=== PATIENT | female | born 1965 | race Hispanic/Latino ===

== ENCOUNTER 2025-03-09 13:43 | Emergency (ER) | payer SELFPAY ==
--- NOTE | 2025-03-09 15:42 | RAD REPORT ---
EXAM: Chest Single View HISTORY: 59 years Female COUGH COMPARISON: None. FINDINGS: LUNGS/PLEURA: The lungs are clear. No pleural effusions or pneumothorax. No pulmonary edema. CARDIAC/MEDIASTINUM: The cardiac silhouette is within normal limits. UPPER ABDOMEN: No significant abnormality. BONES: No acute abnormality. LINES/TUBES/OTHER: N/A IMPRESSION: No evidence of acute cardiopulmonary disease.
[2025-03-09 16:11] LABS: Absolute Basophils 0.1 K/uL (0-0.5); Absolute Eosinophils 0.3 K/uL (0-0.5); Absolute Lymphocytes (CBC) 1.1 K/uL (0.7-4.9); Absolute Monocytes 0.6 K/uL (0.1-1.3); Basophils % 0.9 % (0-1.3); Eosinophils % 4.7 % (0-4.4); Lymphocytes % 18.5 % (15.3-44.8); MCH 30.4 pg (27.0-35.0); MCHC 34.9 g/dL (32.0-36.0); Monocytes % 10.4 % (3.3-12.3); Neutrophils % 65.5 % (41.7-73.7); Platelets 217 thou/uL (152-406); RBC Red Blood Cell Count 4.59 M/uL (3.86-4.86)
[2025-03-09 16:22] LABS: ALT/SGPT 33 U/L (13-56); AST/SGOT 21 U/L (15-37); Albumin/Globulin Ratio 0.9 (1.1-1.8); Alkaline Phosphatase 118 U/L (45-117); BUN Blood Urea Nitrogen 18 mg/dL (7-18); Bicarbonate 26 mEq/L (21-32); Bilirubin Total 0.3 mg/dL (0.2-1.0); Globulin 4.3 g/dL (2.3-3.5); Glomerular Filtration Rate 69 ml/min (=/>90); Glucose Level 131 mg/dL (74-106); Lipase 26 U/L (13-75); Magnesium 2.3 mg/dL (1.6-2.4); NT PRO-BNP 44 pg/mL (<125); Protein, Total 8.3 g/dL (6.4-8.2); Sodium Level 135 mEq/L (136-145)
[2025-03-09] MEDS ORDERED: CEFTRIAXONE 1000 MG/VIAL ONE (16:37)
[2025-03-09] MEDS ORDERED: NA CHLORIDE 0.9% 2,000 ML ONE (16:37)
[2025-03-09 16:38] LABS: Specific Gravity 1.025 (1.005-1.030); Sqamous Epithelial <5 /HPF (None Seen); Urine Bacteria <20 /HPF (<20); Urine Bilirubin NEGATIVE (Negative); Urine Blood Negative (Negative); Urine Clarity Extremely Turbid (Clear); Urine Color Yellow (Yellow); Urine Crystals Unidentified Few /HPF (None Seen); Urine Culture Reflex Order NOT NEEDED; Urine Glucose NEGATIVE (Negative); Urine Ketones NEGATIVE (Negative); Urine Microscopic Reflex YN ORDER UMIC; Urine Mucus 1+ /HPF (None Seen); Urine Nitrite NEGATIVE (Negative); Urine Protein TRACE (Negative); Urine Urobilinogen Normal (Normal); Urine WBC <5 /HPF (<5); Urine Yeast (Budding) Trace /HPF (None Seen); Urine pH 5.5 (5.0-7.0)
[2025-03-09 16:40] LABS: Bilirubin Direct < 0.2 mg/dL (0-0.2); Bilirubin Indirect, Calculated 0.1 mg/dL (0.2-0.8); Troponin High Sensitivity < 3.0 pg/mL (<58.9)
[2025-03-09 17:01] LABS: PT Prothrombin Time 12.2 SECONDS (10-13.0); Protime INR 1.07
--- NOTE | 2025-03-09 17:32 | RAD REPORT ---
EXAM: CTA of the chest, abdomen and pelvis HISTORY: Chest and abdominal pain COMPARISON: None TECHNIQUE: Multiple contiguous axial images were obtained a CTA of the chest and abdomen with contras t per aortic dissection protocol. Sagittal and coronal 3-D MIP reformats were performed. 100 cc Isovue-370 administered intravenously.Automated exposure control, adjustment of the mA and kV accordi ng to the patient size, and iterative reconstruction. Unless otherwise specified, incidental findings do not require dedicated imaging follow-up. FINDINGS: An aortic dissection not seen. No aortic aneurysm Celiac, SMA and SINA do not demonstrate a significant abnormality. Renal arteries do not demonstrate a significant abnormality. Lungs are clear Mild fatty liver. Spleen, pancreas, adrenals, kidneys and bladder do not demonstrate a significant abnormality No evidence of diverticulitis. Normal appendix. No adnexal mass IMPRESSION: No evidence of an aortic dissection
--- NOTE | 2025-03-09 17:58 | EDPHYS ---
Physician Documentation [facility] Name: Leyda Bey Age: 59 yrs Sex: Female : 1965 Arrival Date: 03/09/2025 Time: 13:43 Bed 15 Private MD: EBEN Physician Ricardo Price HPI: 03/09 17:49 This 59 yrs old Female presents to ER via Ambulatory with complaints of Chest yesenia Pain, Back Pain, Fever, Cough. 17:49 The patient or guardian reports chest pain that is located primarily in the epigastric yesenia area, anterior chest wall, bilaterally. Onset: 3 day(s) ago. The pain does not radiate. The chest pain is described as aching. Severity of pain: At its worst the pain was mild in the emergency department the pain is unchanged. Historical: - Allergies: 14:29 No Known Allergies; ap3 - Home Meds: 14:29 None [Active]; ap3 - PMHx: 14:29 Pneumonia; ap3 - Immunization history:: Client reports receiving the 2nd dose of the Covid vaccine, Flu vaccine is not up to date. - Infectious Disease History:: Denies. Denies. - Social history:: Smoking status: Patient denies any tobacco usage or history of. ROS: 17:50 Eyes: Negative for injury, pain, redness, and discharge, ENT: Negative for injury, yesenia pain, and discharge, Neck: Negative for injury, pain, and swelling, Cardiovascular: Negative for chest pain, palpitations, and edema, Abdomen/GI: Negative for abdominal pain, nausea, vomiting, diarrhea, and constipation, Back: Negative for injury and pain, : Negative for injury, bleeding, discharge, and swelling, MS/Extremity: Negative for injury and deformity, Skin: Negative for injury, rash, and discoloration, Neuro: Negative for headache, weakness, numbness, tingling, and seizure, Psych: Negative for depression, anxiety, suicide ideation, homicidal ideation, and hallucinations, Allergy/Immunology: Negative for hives, rash, and allergies, Endocrine: Negative for neck swelling, polydipsia, polyuria, polyphagia, and marked weight changes, Hematologic/Lymphatic: Negative for swollen nodes, abnormal bleeding, and unusual bruising, 17:50 Constitutional: Positive for body aches, chills, fatigue, fever, malaise, 17:50 Respiratory: Positive for cough, shortness of breath, wheezing, expiratory, Exam: 17:50 Constitutional: This is a well developed, well nourished patient who is awake, alert, yesenia and in no acute distress. Head/Face: Normocephalic, atraumatic. Eyes: Pupils equal round and reactive to light, extra-ocular motions intact. Lids and lashes normal. Conjunctiva and sclera are non-icteric and not injected. Cornea within normal limits. Periorbital areas with no swelling, redness, or edema. ENT: Nares patent. No nasal discharge, no septal abnormalities noted. Tympanic membranes are normal and external auditory canals are clear. Oropharynx with no redness, swelling, or masses, exudates, or evidence of obstruction, uvula midline. Mucous membranes moist. Neck: Trachea midline, no thyromegaly or masses palpated, and no cervical lymphadenopathy. Supple, full range of motion without nuchal rigidity, or vertebral point tenderness. No Meningismus. Chest/axilla: Normal chest wall appearance and motion. Nontender with no deformity. No lesions are appreciated. Cardiovascular: Regular rate and rhythm with a normal S1 and S2. No gallops, murmurs, or rubs. Normal PMI, no JVD. No pulse deficits. Abdomen/GI: Soft, non-tender, with normal bowel sounds. No distension or tympany. No guarding or rebound. No evidence of tenderness throughout. Back: No spinal tenderness. No costovertebral tenderness. Full range of motion. Skin: Warm, dry with normal turgor. Normal color with no rashes, no lesions, and no evidence of cellulitis. MS/ Extremity: Pulses equal, no cyanosis. Neurovascular intact. Full, normal range of motion., bilateral aka Neuro: Awake and alert, GCS 15, oriented to person, place, time, and situation. Cranial nerves II-XII grossly intact. Motor strength 5/5 in all extremities. Sensory grossly intact. Cerebellar exam normal. Normal gait. Psych: Awake, alert, with orientation to person, place and time. Behavior, mood, and affect are within normal limits. 17:50 ECG was reviewed by the Attending Physician. 17:50 Respiratory: the patient does not display signs of respiratory distress, Respirations: labored breathing, is not present, Breath sounds: rales, are not appreciated, bronchial sounds, that are mild, decreased breath sounds, that are mild, rhonchi, that are mild, are scattered, stridor, is not appreciated, wheezing: expiratory is scattered, 17:50 Musculoskeletal/extremity: Extremities: all appear grossly normal, with no appreciated pain with palpation, ROM: no acute changes, intact in all extremities, full active range of motion, full passive range of motion, Circulation is intact in all extremities. Compartment Syndrome exam of affected extremity: is normal. no pain, no numbness, no tingling, no sensation deficit, no palor, no weak pulses, DVT Exam: No signs of deep vein thrombosis. no pain, no swelling, no tenderness, negative Homans' sign noted on exam, no appreciated bluish discoloration, no erythema, no increased warmth, Vital Signs: 14:26 BP 144 / 96; Pulse 80; Resp 19; Temp 98; Pulse Ox 96% on R/A; Weight 68.04 kg; Height 5 bp ft. 1 in. ; 17:34 BP 115 / 70; Pulse 76; Resp 16; Pulse Ox 95% ; bp 18:38 BP 134 / 72; Pulse 76; Resp 16; Pulse Ox 95% ; bp 14:26 Body Mass Index 28.34 (68.04 kg, 156 cm) bp Cristiane Coma Score: 17:50 Eye Response: spontaneous(4). Motor Response: obeys commands(6). Verbal Response: yesenia oriented(5). Total: 15. MDM: 13:53 Medical Screening Exam initiated yesenia 18:02 Differential diagnosis: abnormal EKG, acute myocardial infarction, acute pericarditis, yesenia anxiety, chest wall pain, congestive heart failure Cholelithiasis costochondritis, viral Infection, bacterial infection, URI, bronchitis, esophagitis, hiatal hernia, pancreatitis, peptic ulcer disease, pericarditis, pneumonia, pulmonary embolus, stable angina, thoracic aortic disection, unstable angina. Differential Diagnosis altered mental status, sepsis, flu. HEART Score: History: Slightly Suspicious (0), ECG: Non specific repolarization disturbance / LBTB / PM (1), Age: > 45 and < 65 years (1), Risk Factors: 1 or 2 risk factors (1), [+ Family HX] [Obesity] Troponin: < or = 1 x Normal Limit (0). The patient was given aspirin in the Emergency Department. RADAMES Risk Score: TOTAL SCORE = 0. Data reviewed: vital signs, nurses notes, lab test result(s), EKG, radiologic studies, CT scan, plain films. Consideration of Admission/Observation Escalation of care including admission/observation considered. I considered the following discharge prescriptions or medication management in the emergency department Medications were administered in the Emergency Department. See MAR. Test considered but Not performed: MRI: no mrcp. 03/09 13:54 Order name: Basic Metabolic Panel; Complete Time: 17:28 [facility] 03/09 13:54 Order name: CBC with Diff; Complete Time: 17:28 [facility] 03/09 13:54 Order name: LFT's; Complete Time: 17:28 [facility] 03/09 13:54 Order name: Magnesium; Complete Time: 17:28 [facility] 03/09 13:54 Order name: NT PRO-BNP; Complete Time: 17:28 [facility] 03/09 13:54 Order name: PT-INR; Complete Time: 17:28 [place] 03/09 13:54 Order name: Troponin HS; Complete Time: 17:28 [facility] 03/09 13:54 Order name: Blood Culture Adult (2) yesenia 03/09 13:54 Order name: Lipase; Complete Time: 17:28 [facility] 03/09 13:54 Order name: Urinalysis w/ reflexes; Complete Time: 17:28 [facility] 03/09 13:54 Order name: XRAY Chest (1 view); Complete Time: 17:28 03/09 13:54 Order name: CT Aorta for Dissection; Complete Time: 17:40 03/09 13:54 Order name: Cardiac monitoring; Complete Time: 17:01 03/09 13:54 Order name: EKG - Nurse/Tech; Complete Time: 16:41 03/09 13:54 Order name: IV Saline Lock; Complete Time: 15:46 03/09 13:54 Order name: Labs collected and sent; Complete Time: 15:46 03/09 13:54 Order name: O2 Per Protocol; Complete Time: 17:01 03/09 13:54 Order name: O2 Sat Monitoring; Complete Time: 17:01 [facility] EC:50 Rate is 77 beats/min. Rhythm is regular. QRS [place] is Normal. DC interval is normal. QRS yesenia interval is normal. QT interval is normal. No Q waves. T waves are Normal. No ST changes noted. Clinical impression: NSR w/ Non-specific ST/T Changes and No evidence of ischemia. Interpreted by me. Reviewed by me. Administered Medications: 17:31 Drug: NS 0.9% IV (30 ml/kg) 30 ml/kg IV at bolus once; Sepsis Protocol; to be given as bp a bolus over 90 minutes Route: IV; Rate: bolus; Site: left antecubital; 18:38 Follow up: IV Status: Completed infusion bp 17:31 Drug: Rocephin IV 1 grams IV at per protocol once; Given slow IV push per pharmacy bp instructions Route: IV; Rate: per protocol; Site: left antecubital; 18:38 Follow up: IV Status: Completed infusion bp 18:11 Drug: AZITHromycin PO 500 mg PO once Route: PO; bp 18:38 Follow up: Response: No adverse reaction bp 18:11 Drug: Levalbuterol Inhalation 2.5 mg Inhalation once Route: Inhalation; bp 18:11 Drug: Ipratropium Inhalation Aerosol 0.5 mg Inhalation once Route: Inhalation; bp 18:11 Drug: Aspirin PO Chewable Tablet 81 mg PO once Route: PO; bp 18:38 Follow up: Response: No adverse reaction bp 18:11 Drug: Famotidine IVP 20 mg IVP once; dilute with 10 mL 0.9% NaCl; give over 2 minutes bp Route: IVP; Site: left antecubital; 18:38 Follow up: Response: No adverse reaction bp 18:15 Drug: predniSONE PO 40 mg PO once Route: PO; bp 18:38 Follow up: Response: No adverse reaction bp Disposition Summary: 03/09/25 17:57 Discharge Ordered Notes: Location: Home yesenia Problem: new yesenia Symptoms: have improved yesenia Condition: Stable yesenia Diagnosis - Chest pain, unspecified yesenia - Acute upper respiratory infection, unspecified yesenia - UTI/ Urinary tract infection, site not specified yesenia - Cough yesenia - Fever, unspecified yesenia Followup: yesenia - With: Private Physician - When: 2 - 3 days - Reason: Recheck today's complaints, Continuance of care, Re-evaluation by your physician Followup: yesenia - With: Anupam Jeong MD - When: 2 - 3 days - Reason: Recheck today's complaints, Re-evaluation by your physician Followup: yesenia - With: Reinier James MD - When: 2 - 3 days - Reason: Recheck today's complaints, Continuance of care, Re-evaluation by your physician Discharge Instructions: - Discharge Summary Sheet yesenia - Nonspecific Chest Pain, Adult yesenia - Fever, Adult yesenia - Urinary Tract Infection, Adult yesenia - Cool Mist Vaporizer yesenia - Urinary Tract Infection, Adult, [id number] yesenia - Nonspecific Chest Pain, Adult, Ywyn-ni-Dgar yesenia - Upper Respiratory Infection, Adult, Djvw-[id number] yesenia - Cough, Adult, Achy-fn-Cesc [facility] - Aspirin and Your Heart [facility] - Cough, Adult [facility] Forms: - Medication Reconciliation Form [facility] - Antibiotic Education [facility] - Prescription Opioid Use [facility] - Patient Portal Instructions [facility] - Leadership Thank You Letter [facility] Prescriptions: - albuterol sulfate 90 mcg/actuation Inhalation HFA Aerosol Inhaler - inhale 2 inhalation INHALATION route every 4-6 hours; 2 unit; Refills: 0, [facility] Product Selection Permitted - cefdinir 300 mg Oral capsule - take 1 capsule ORAL route every 12 hours for 7 days; 14 capsule; Refills: 0, [facility] Product Selection Permitted - Pepcid 20 mg Oral tablet - take 1 tablet ORAL route every 12 hours for 21 days; 42 tablet; Refills: 0, [facility] Product Selection Permitted - Medrol (Reggie) 4 mg Oral Tablets, Dose Pack - take 1 tablet ORAL route as directed - follow package instructions; 1 packet; [facility] Refills: 0, Product Selection Permitted - Zithromax 500 mg Oral tablet - take 1 tablet ORAL route once daily for 4 days begin 03/10/25; 4 tablet; Refills: [facility] 0, Product Selection Permitted Signatures: Dispatcher [employer] EDMS Ricardo Price MD MD cha Peltier, Brian, RN RN bp Binta Crowder RN RN ap3 Corrections: (The following items were deleted from the chart) 13:55 13:55 BASIC METABOLIC PANEL+C.LAB.BRZ ordered. EDMS EDMS 13:55 13:55 CBC+H.LAB.BRZ ordered. EDMS EDMS 13:55 13:55 HEPATIC FUNCTION+C.LAB.BRZ ordered. EDMS EDMS 13:55 13:55 MAGNESIUM+C.LAB.BRZ ordered. EDMS EDMS 13:55 13:55 PROBNP+C.LAB.BRZ ordered. EDMS EDMS 13:55 13:55 PROTIME (+INR)+COAG.LAB.BRZ ordered. EDMS EDMS 13: 13:55 Troponin High Sensitivity+C.LAB.BRZ ordered. EDMS EDMS 13: 13:55 BLOOD CULTURE*+BA.LAB.BRZ ordered. EDMS EDMS 13: 13:55 LIPASE+C.LAB.BRZ ordered. EDMS EDMS 13: 13:55 Urinalysis+U.LAB.BRZ ordered. EDMS EDMS 13: 13:55 Chest Single View+RAD.RAD.BRZ ordered. EDMS EDMS 13: 13:55 Angio Aorta For Dissection+CT.RAD.BRZ ordered. EDMS EDMS
--- NOTE | 2025-03-09 17:58 | ER ---
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 patient is complaining of headache and feeling like she is now getting pneumonia. patient states she feels like her chest is full of mucus and that her head and chest feel like they will burst. patient complains of chills, cough, headache and nausea. Coronavirus screen: Client presents with at least one sign or symptom that may indicate coronavirus-19. Ebola Screen: No symptoms or risks identified at this time. Initial Sepsis Screen: Does the patient meet any 2 criteria? No. Patient's initial sepsis screen is negative. Does the patient have a suspected source of infection? No. Patient's initial sepsis screen is negative. Risk Assessment: Do you want to hurt yourself or someone else? Patient reports no desire to harm self or others. Onset of symptoms was March 07, 2025. 14:26 Method Of Arrival: Ambulatory ap3 14:26 Acuity: ANGELES 3 ap3 Triage Assessment: 14:30 General: Appears ill, Behavior is calm, cooperative, appropriate for age. Pain: ap3 Complains of pain in face and chest. Neuro: Level of Consciousness is awake, alert, obeys commands, Oriented to person, place, time, situation, Appropriate for age. Cardiovascular: Patient's skin is warm and dry. Respiratory: Reports cough that is productive, pain with cough Airway is patent Respiratory effort is even, unlabored, Respiratory pattern is regular, symmetrical. GI: Reports nausea. Historical: - Allergies: 14:29 No Known Allergies; ap3 - Home Meds: 14:29 None [Active]; ap3 - PMHx: 14:29 Pneumonia; ap3 - Immunization history:: Client reports receiving the 2nd dose of the Covid vaccine, Flu vaccine is not up to date. - Infectious Disease History:: Denies. Denies. - Social history:: Smoking status: Patient denies any tobacco usage or history of. Screenin:30 [facility] ED Fall Risk Assessment (Adult) History of falling in the last 3 months, ap3 including since admission No falls in past 3 months (0 pts) Confusion or Disorientation No (0 pts) Intoxicated or Sedated No (0 pts) Impaired Gait No (0 pts) Mobility Assist Device Used No (0 pt) Altered Elimination No (0 pt) Score/Fall Risk Level 0 - 2 = Low Risk Oriented to surroundings, Maintained a safe environment, Educated pt \T\ family on fall prevention, incl call for assistance when getting out of bed, Assessed \T\ reinforced patient's understanding of fall precautions, Hourly rounding (assess needs \T\ fall precautionary measures) done, Used ambulatory aids as needed (educated on \T\ assisted with). Abuse screen: Denies threats or abuse. Nutritional screening: No deficits noted. Tuberculosis screening: No symptoms or risk factors identified. Assessment: 17:35 General: Appears in no apparent distress. comfortable, Behavior is calm, cooperative, bp appropriate for age, RECD PT FROM RAD. Pain: Pain does not radiate. Pain began suddenly. Vital Signs: 14:26 BP 144 / 96; Pulse 80; Resp 19; Temp 98; Pulse Ox 96% on R/A; Weight 68.04 kg; Height 5 bp ft. 1 in. ; 17:34 BP 115 / 70; Pulse 76; Resp 16; Pulse Ox 95% ; bp 18:38 BP 134 / 72; Pulse 76; Resp 16; Pulse Ox 95% ; bp 14:26 Body Mass Index 28.34 (68.04 kg, 156 cm) bp [place] Coma Score: 17:50 Eye Response: spontaneous(4). Motor Response: obeys commands(6). Verbal Response: yesenia oriented(5). Total: 15. ED Course: 13:47 Patient arrived in ED. al6 13:53 Ricardo Price MD is Attending Physician. yesenia 14:29 Triage completed. ap3 14:31 Arm band placed on right wrist. ap3 14:31 Patient maintains SpO2 saturation greater than 95% on room air. ap3 14:43 XRAY Chest (1 view) In Process Unspecified. EDMS 15:02 Radiology exam delayed due to lab results not completed at this time. (BUN/Creatinine) nj IV insertion attempt and/or patient not having appropriate IV at this time. 15:45 Initial lab(s) drawn, by me, sent to lab. First set of blood cultures drawn by me. bc6 15:46 Lipase Sent. bc6 15:46 Blood Culture Adult (2) Sent. bc6 15:46 Basic Metabolic Panel Sent. bc6 15:46 CBC with Diff Sent. bc6 15:46 LFT's Sent. bc6 15:46 Magnesium Sent. bc6 15:46 NT PRO-BNP Sent. bc6 15:46 PT-INR Sent. bc6 15:46 Troponin HS Sent. bc6 15:46 Inserted saline lock: 20 gauge in left antecubital area, using aseptic technique. Blood bc6 collected. Flushed with 10 mL NS. 16:41 EKG done, by ED staff, reviewed by Ricardo Price MD. bc6 17:01 Santiago Brock, RN is Primary Nurse. bp 17:18 CT Aorta for Dissection In Process Unspecified. EDMS 17:36 Patient has correct armband on for positive identification. Provided Education on: NA. bp Client placed on continuous cardiac and pulse oximetry monitoring. NIBP monitoring applied. business programmer on. Pulse ox on. NIBP on. 17:56 Anupam Jeong MD is Referral Physician. yesenia 17:56 Reinier James MD is Referral Physician. yesenia 18:39 No provider procedures requiring assistance completed. IV discontinued, intact, bp bleeding controlled, No redness/swelling at site. Pressure dressing applied. Administered Medications: 17:31 Drug: NS 0.9% IV (30 ml/kg) 30 ml/kg IV at bolus once; Sepsis Protocol; to be given as bp a bolus over 90 minutes Route: IV; Rate: bolus; Site: left antecubital; 18:38 Follow up: IV Status: Completed infusion bp 17:31 Drug: Rocephin IV 1 grams IV at per protocol once; Given slow IV push per pharmacy bp instructions Route: IV; Rate: per protocol; Site: left antecubital; 18:38 Follow up: IV Status: Completed infusion bp 18:11 Drug: AZITHromycin PO 500 mg PO once Route: PO; bp 18:38 Follow up: Response: No adverse reaction bp 18:11 Drug: Levalbuterol Inhalation 2.5 mg Inhalation once Route: Inhalation; bp 18:11 Drug: Ipratropium Inhalation Aerosol 0.5 mg Inhalation once Route: Inhalation; bp 18:11 Drug: Aspirin PO Chewable Tablet 81 mg PO once Route: PO; bp 18:38 Follow up: Response: No adverse reaction bp 18:11 Drug: Famotidine IVP 20 mg IVP once; dilute with 10 mL 0.9% NaCl; give over 2 minutes bp Route: IVP; Site: left antecubital; 18:38 Follow up: Response: No adverse reaction bp 18:15 Drug: predniSONE PO 40 mg PO once Route: PO; bp 18:38 Follow up: Response: No adverse reaction bp Outcome: 17:57 Discharge ordered by . yesenia 18:39 Discharged to home ambulatory, bp 18:39 Condition: stable 18:39 Discharge instructions given to patient, Instructed on discharge instructions, follow up and referral plans. medication usage, Demonstrated understanding of instructions, follow-up care, medications, Prescriptions given X 5 18:39 Patient left the ED. bp Signatures: Dispatcher [employer] EDMS Ricardo Price MD MD cha Jordan, Nathan nj Peltier, Brian RN RN bp Binta Crowder RN RN ap3 Shira Eric6 Chio Soto6 Corrections: (The following items were deleted from the chart) 17:02 14:26 BP 144 / 96; Pulse 80bpm; Resp 19bpm; Pulse Ox 96% RA; Temp 98F; Height 5 ft. 1 bp in.; ap3
[2025-03-09] MEDS ORDERED: IPRATROPIUM BROM 0.5MG/2.5ML ONE (18:01)
[2025-03-09] MEDS ORDERED: FAMOTIDINE 20 MG/2 ML VIAL IV ONE (18:02)
[2025-03-09] MEDS ORDERED: LEVALBUTEROL 1.25 MG/3 ML NEB ONE (18:02)
[2025-03-09] MEDS ORDERED: AZITHROMYCIN 250 MG TAB ONE (18:02)
[2025-03-09] MEDS ORDERED: ASPIRIN EC 81 MG TAB PO ONE (18:02)
[2025-03-09] MEDS ORDERED: predniSONE 20 MG TAB ONE (18:21)
[2025-03-09 19:13] VITALS: TEMP 98
[2025-03-09 19:14] VITALS: O2SAT 95
[2025-03-09 19:15] VITALS: BP 134/72
--- NOTE | 2025-03-10 11:59 | EKG ---
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
== END 2025-03-09 18:39 | disposition home or self-care (01) ==
LOC: ER 13:43
DX: J06.9 Acute upper respiratory infection, unspecified (principal); N39.0 Urinary tract infection, site not specified; R05.9 Cough, unspecified
CPT/HCPCS: 36415; 71045; 71275; 74175; 80048; 80076; 81001; 83690; 83735; 83880; 84484; 85025; 85610; 87040; 93005; 96365; 96368; 96375; 99285; J0696; J7030; J7512; J7614; J7644; Q9967

== ENCOUNTER 2025-04-11 17:33 | Emergency (ER) | payer OTHER ==
--- NOTE | 2025-04-11 19:15 | RAD REPORT ---
EXAM: CT brain without contrast HISTORY: fall, head/neck/back/right flank pain COMPARISON: None TECHNIQUE: Multiple contiguous axial images were obtained and a CT of the brain without contrast. Sag ittal and coronal reformats were performed. One or more of the following dose reduction techniques were used: Automated exposure control, adjust ment of the mA and/or kV according to patient size, and/or iterative reconstruction. FINDINGS: No evidence of hydrocephalus, intracranial hemorrhage, or extra-axial fluid collection. The brain is normal in morphology. No evidence of midline shift or areas of brain edema. The calvarium is intact. The visualized paranasal sinuses and mastoid air cells are essentially clear . EXAM: CT of the cervical spine without contrast HISTORY: Neck pain, injury fall, head/neck/back/right flank pain TECHNIQUE: Multiple contiguous axial images were obtained in a CT of the cervical spine without contr ast. Sagittal and coronal reformats were performed. FINDINGS: The vertebral bodies demonstrate normal height and alignment. No evidence of acute fracture or subluxation.. No degenerative changes are present. No prevertebral soft tissue swelling is seen. The posterior facets are well aligned. Normal alignment of the skull base with the cervical spine is seen. The lung apices are unremarkable. COMBINED IMPRESSION: No evidence of acute intracranial abnormality. No evidence of acute osseous abnormality of the cervical spine.
--- NOTE | 2025-04-11 19:17 | RAD REPORT ---
EXAM: CT CHEST, ABDOMEN AND PELVIS WITHOUT CONTRAST CLINICAL INDICATION: fall, head/neck/back/right flank pain TECHNIQUE: CT chest, abdomen and pelvis was performed without contrast, as per department protocol. A xial, sagittal and coronal reconstructions were obtained. One or more of the following dose reduction techniques were used: Automated exposure control, adjustment of the mA and/or kV according to patient size, and/or iterative reconstruction. Unless otherwise specified, incidental findings do not require dedicated imaging follow-up. Examination is limited by the lack of intravenous contrast material. COMPARISON: No prior exam. FINDINGS: LUNGS: No evidence of airspace or interstitial process. No nodules. PLEURA: No pleural effusion. No pneumothorax. MEDIASTINUM AND LYMPH NODES: No mediastinal mass or fluid collection. Normal size mediastinal, hilar, and axillary lymph nodes. OSSEOUS STRUCTURES AND CHEST WALL: Intact. LIVER: Normal in size and contour. No focal lesion or biliary dilatation. Grossly unremarkable gallbl adder. PANCREAS: No mass, ductal dilation, or lilo-pancreatic fluid. SPLEEN: Normal size. No focal lesion. ADRENALS: Normal; no mass. KIDNEYS: Normal size and contour. No hydronephrosis. URINARY BLADDER: Normal contour. GASTROINTESTINAL TRACT: No bowel obstruction, free air, significant free fluid or abscess. APPENDIX: Appendix not visualized, but no inflammatory changes in region of appendix. LYMPH NODES: No lymphadenopathy. MUSCULOSKELETAL: No acute or suspicious osseous abnormality. IMPRESSION: No acute or significant abnormalities seen in the chest, abdomen or pelvis.
--- NOTE | 2025-04-11 19:17 | RAD REPORT ---
EXAMINATION: XR RIGHT FOREARM CLINICAL INDICATION: . PAIN TECHNIQUE:Two view radiograph of the right forearm were obtained. COMPARISON: No prior exam. FINDINGS: No acute fracture or dislocation seen.
--- NOTE | 2025-04-11 19:18 | RAD REPORT ---
EXAMINATION: XR LEFT ELBOW CLINICAL INDICATION: Female, 59 years old. PAIN TECHNIQUE: Multiple views of the left elbow were obtained. COMPARISON: No prior exam. FINDINGS: No acute fracture or dislocation seen.
[2025-04-11] MEDS ORDERED: HYDROCODONE/APAP 5/325 MG TAB ONE (19:52)
[2025-04-11] MEDS ORDERED: IBUPROFEN 200 MG TAB PO ONE (19:52)
[2025-04-11] MEDS ORDERED: PROMETHAZINE 25 MG TABLET ONE (19:52)
--- NOTE | 2025-04-11 19:58 | EDPHYS ---
Physician Documentation [facility] Name: Leyda Bey Age: 59 yrs Sex: Female : 1965 Arrival Date: 04/11/2025 Time: 17:33 Bed 11 Private MD: ED Physician Shade Galloway HPI: 04/11 18:27 This 59 yrs old Female presents to ER via Ambulatory with complaints of Fall rn Injury. 18:27 Details of fall: The patient fell from an upright position. Onset: The symptoms/episode rn began/occurred yesterday. Associated injuries: The patient sustained injury to the head, neck injury, upper back injury, injury to the chest, injury to the abdomen. Patient reports fall, fell backward yesterday. Does not think she struck head but reports pain to the back of head, neck, back, right side of abdomen. Does not take blood thinners. No LOC. Patient reports more stiffness today so came in for evaluation. Also reports her right forearm and left elbow, neither feels broken to her but would like it evaluated.. Historical: - Allergies: 17:43 No Known Allergies; aa5 - PMHx: 17:43 Pneumonia; Bronchitis; aa5 - PSHx: 17:43 None; aa5 - Immunization history:: Adult Immunizations unknown. - Infectious Disease History:: Denies. - Social history:: Smoking status: Patient denies any tobacco usage or history of. - Family history:: not pertinent. - Hospitalizations: : No recent hospitalization is reported. ROS: 18:27 Constitutional: Negative for fever, chills, and weight loss, Neck: Positive for neck rn pain Cardiovascular: Negative for chest pain, palpitations, and edema, Respiratory: Negative for shortness of breath, cough, wheezing, and pleuritic chest pain, Abdomen/GI: Positive for right-sided abdominal pain Back: Positive for mid back pain MS/Extremity: Positive for right forearm and left elbow pain Skin: Negative for injury, rash, and discoloration, Neuro: Negative for headache, weakness, numbness, tingling, and seizure, Exam: 18:27 Constitutional: This is a well developed, well nourished patient who is awake, alert, rn and in no acute distress. Ambulatory to triage without assistance or difficulty Head/Face: Normocephalic, atraumatic. Eyes: Pupils equal round and reactive to light, extra-ocular motions intact. Lids and lashes normal. Conjunctiva and sclera are non-icteric and not injected. Cornea within normal limits. Periorbital areas with no swelling, redness, or edema. Neck: No midline cervical tenderness, mild tenderness at base of skull without hematoma or swelling Chest/axilla: No rib tenderness or crepitus Cardiovascular: Bradycardic, regular. Respiratory: Speaking full sentences, unlabored. No increased work of breathing, no retractions or nasal flaring. Abdomen/GI: Soft, non-tender, with normal bowel sounds. No distension or tympany. No guarding or rebound. No evidence of tenderness throughout. Back: No midline spinal tenderness MS/ Extremity: Pulses equal, no cyanosis. Neurovascular intact. Full, normal range of motion. Equal circumference. Mild contusion and swelling to the right forearm. Mild swelling and mild painful range of motion to the left elbow without gross deformity. Neuro: Awake and alert, GCS 15, oriented to person, place, time, and situation. Cranial nerves II-XII grossly intact. Motor strength 5/5 in all extremities. Sensory grossly intact. Cerebellar exam normal. Normal gait. Vital Signs: 17:41 BP 142 / 77; Pulse 58; Resp 16 S; Temp 98.3(O); Pulse Ox 99% on R/A; Weight 63.5 kg aa5 (R); Height 5 ft. 1 in. (R); 20:01 BP 134 / 87; Pulse 62; Resp 15; Temp 98.1; Pulse Ox 100% ; me1 17:41 Body Mass Index 26.45 (63.50 kg, 154.94 cm) aa5 MDM: 17:56 Medical Screening Exam initiated rn 04/12 00:28 Differential diagnosis: abrasion, closed head injury, contusion, fracture, laceration, sp4 multiple trauma, sprain, strain, head injury . Data reviewed: vital signs, nurses notes, radiologic studies. Consideration of Admission/Observation Escalation of care including admission/observation considered. 00:29 ED course: EXAMINATION: XR RIGHT FOREARM CLINICAL INDICATION: . PAIN TECHNIQUE:Two view sp4 radiograph of the right forearm were obtained. COMPARISON: No prior exam. FINDINGS: No acute fracture or dislocation seen. . ED course: EXAMINATION: XR LEFT ELBOW CLINICAL INDICATION: Female, 59 years old. PAIN TECHNIQUE: Multiple views of the left elbow were obtained. COMPARISON: No prior exam. FINDINGS: No acute fracture or dislocation seen. . ED course: EXAM: CT brain without contrast HISTORY: fall, head/neck/back/right flank pain COMPARISON: None TECHNIQUE: Multiple contiguous axial images were obtained and a CT of the brain without contrast. Sagittal and coronal reformats were performed. One or more of the following dose reduction techniques were used: Automated exposure control, adjustment of the mA and/or kV according to patient size, and/or iterative reconstruction. FINDINGS: No evidence of hydrocephalus, intracranial hemorrhage, or extra-axial fluid collection. The brain is normal in morphology. No evidence of midline shift or areas of brain edema. The calvarium is intact. The visualized paranasal sinuses and mastoid air cells are essentially clear. EXAM: CT of the cervical spine without contrast HISTORY: Neck pain, injury fall, head/neck/back/right flank pain TECHNIQUE: Multiple contiguous axial images were obtained in a CT of the cervical spine without contrast. Sagittal and coronal reformats were performed. FINDINGS: The vertebral bodies demonstrate normal height and alignment. No evidence of acute fracture or subluxation.. No degenerative changes are present. No prevertebral soft tissue swelling is seen. The posterior facets are well aligned. Normal alignment of the skull base with the cervical spine is seen. The lung apices are unremarkable. COMBINED IMPRESSION: No evidence of acute intracranial abnormality. No evidence of acute osseous abnormality of the cervical spine. . ED course: EXAM: CT CHEST, ABDOMEN AND PELVIS WITHOUT CONTRAST CLINICAL INDICATION: fall, head/neck/back/right flank pain TECHNIQUE: CT chest, abdomen and pelvis was performed without contrast, as per department protocol. Axial, sagittal and coronal reconstructions were obtained. One or more of the following dose reduction techniques were used: Automated exposure control, adjustment of the mA and/or kV according to patient size, and/or iterative reconstruction. Unless otherwise specified, incidental findings do not require dedicated imaging follow-up. Examination is limited by the lack of intravenous contrast material. COMPARISON: No prior exam. FINDINGS: LUNGS: No evidence of airspace or interstitial process. No nodules. PLEURA: No pleural effusion. No pneumothorax. MEDIASTINUM AND LYMPH NODES: No mediastinal mass or fluid collection. Normal size mediastinal, hilar, and axillary lymph nodes. OSSEOUS STRUCTURES AND CHEST WALL: Intact. LIVER: Normal in size and contour. No focal lesion or biliary dilatation. Grossly unremarkable gallbladder. PANCREAS: No mass, ductal dilation, or lilo-pancreatic fluid. SPLEEN: Normal size. No focal lesion. ADRENALS: Normal; no mass. KIDNEYS: Normal size and contour. No hydronephrosis. URINARYBLADDER: Normal contour. GASTROINTESTINAL TRACT: No bowel obstruction, free air, significant free fluid or abscess. APPENDIX: Appendix not visualized, but no inflammatory changes in region of appendix. LYMPH NODES: No lymphadenopathy. MUSCULOSKELETAL: No acute or suspicious osseous abnormality. IMPRESSION: No acute or significant abnormalities seen in the chest, abdomen or pelvis.. 04/11 18:02 Order name: XRAY Forearm RIGHT; Complete Time: 19:45 rn 04/11 18:02 Order name: XRAY Elbow LEFT 3 view; Complete Time: 19:45 rn 04/11 18:08 Order name: Chest Abd Pelvis Wo Con; Complete Time: 19:45 EDMS 04/11 18:10 Order name: Head C Spine Mpr Wo Con; Complete Time: 19:45 EDMS Administered Medications: 04/11 20:01 Drug: HYDROcodone-acetaminophen PO 5 mg-325 mg 2 tabs PO once Route: PO; me1 20:04 Follow up: Response: No adverse reaction me1 20:01 Drug: Promethazine PO 25 mg PO once Route: PO; me1 20:04 Follow up: Response: No adverse reaction me1 20:01 Drug: Ibuprofen PO 600 mg PO once Route: PO; me1 20:04 Follow up: Response: No adverse reaction me1 Disposition: 04/12 00:31 Chart complete. sp4 Disposition Summary: 04/11/25 19:57 Discharge Ordered Notes: Location: Home sp4 Problem: new sp4 Symptoms: have improved sp4 Condition: Stable sp4 Diagnosis - Unspecified injury of head, initial encounter sp4 - Acute fall from standing, posterior head and neck injury, acute lumbar contusion, sp4 acute pain of the head and neck Followup: sp4 - With: Private Physician - When: 7 - 10 days - Reason: Recheck today's complaints Discharge Instructions: - Discharge Summary Sheet sp4 - Head Injury, Adult, [id number] sp4 Forms: - Patient Portal Instructions sp4 - Work release form me1 Prescriptions: - Ibuprofen 600 mg Oral Tablet - take 1 tablet ORAL route every 6 hours As needed take with food; 30 tablet; sp4 Refills: 0, Product Selection Permitted - Tramadol 50 mg Oral tablet - take 1 tablet ORAL route every 8 hours as needed; 20 tablet; Refills: 0, sp4 Product Selection Permitted - methocarbamol 750 mg Oral tablet - take 2 tablets ORAL route every 8 hours for 3 days PRN pain; 60 tablet; sp4 Refills: 0, Product Selection Permitted Signatures: Dispatcher [employer] Nilesh Lucas MD MD rn Calderon, Audri RN RN aa5 Shade Galloway MD MD sp4 Asiya Romero RN RN me1 Corrections: (The following items were deleted from the chart) 04/11 18:06 18:02 Head C Spine Cap Wo Con+CT.RAD.BRZ ordered. EDVA EDMS
--- NOTE | 2025-04-11 19:58 | ER ---
Nurse's Notes [facility] [place] [place] [facility] Name: Leyda Bey Age: 59 yrs Sex: Female : 1965 Arrival Date: 04/11/2025 Time: 17:33 Bed 11 Private MD: Diagnosis: Unspecified injury of head, initial encounter;Acute fall from standing, posterior head and neck injury, acute lumbar contusion, acute pain of the head and neck Presentation: 04/11 17:41 Chief complaint: Patient states: slipped and fell backwards yesterday at work, pt aa5 denies head injury, denies LOC. Reports pain to olegario arms, reports back pain, and pain to right lateral aspect of abdomen. Coronavirus screen: At this time, the client does not indicate any symptoms associated with coronavirus-19. Ebola Screen: Patient denies travel to an Ebola-affected area in the 21 days before illness onset. Initial Sepsis Screen: Does the patient meet any 2 criteria? No. Patient's initial sepsis screen is negative. Does the patient have a suspected source of infection? No. Patient's initial sepsis screen is negative. Risk Assessment: Do you want to hurt yourself or someone else? Patient reports no desire to harm self or others. Onset of symptoms was April 10, 2025. 17:41 Acuity: ANGELES 3 aa5 17:41 Method Of Arrival: Ambulatory aa5 Historical: - Allergies: 17:43 No Known Allergies; aa5 - PMHx: 17:43 Pneumonia; Bronchitis; aa5 - PSHx: 17:43 None; aa5 - Immunization history:: Adult Immunizations unknown. - Infectious Disease History:: Denies. - Social history:: Smoking status: Patient denies any tobacco usage or history of. - Family history:: not pertinent. - Hospitalizations: : No recent hospitalization is reported. Screenin:19 [facility] ED Fall Risk Assessment (Adult) History of falling in the last 3 months, me1 including since admission Yes- single mechanical fall (1 pt) Confusion or Disorientation No (0 pts) Intoxicated or Sedated No (0 pts) Impaired Gait Yes (1 pt) Mobility Assist Device Used Yes (1 pt) Altered Elimination No (0 pt) Score/Fall Risk Level 0 - 2 = Low Risk Maintained a safe environment, Provided non-skid footwear, Hourly rounding (assess needs \T\ fall precautionary measures) done. Abuse screen: Denies threats or abuse. Nutritional screening: No deficits noted. Tuberculosis screening: No symptoms or risk factors identified. Assessment: 19:19 General: Appears uncomfortable, well groomed, well developed, well nourished, Behavior me1 is calm, cooperative, appropriate for age, Reports slipped and fell backwards yesterday at work, pt denies head injury, denies LOC. Reports pain to olegario arms, reports back pain, and pain to right lateral aspect of abdomen. Pain: Complains of pain in anterior aspect of right lateral abdomen, back, right arm and left arm Pain does not radiate. Pain currently is 8 out of 10 on a pain scale. Quality of pain is described as aching, Pain began 1 day ago. Is continuous. Neuro: Level of Consciousness is awake, alert, obeys commands, Oriented to person, place, time, situation, Appropriate for age. Cardiovascular: Patient's skin is warm and dry. Respiratory: Airway is patent Respiratory effort is even, unlabored, Respiratory pattern is regular, symmetrical. GI: No signs and/or symptoms were reported involving the gastrointestinal system. : No signs and/or symptoms were reported regarding the genitourinary system. EENT: No signs and/or symptoms were reported regarding the EENT system. Derm: Skin is intact, is healthy with good turgor, Skin is pink, warm \T\ dry. Musculoskeletal: Reports pain in back, anterior aspect of right lateral abdomen, right arm and left arm. Injury Description: slipped and fell backwards yesterday at work, pt denies head injury, denies LOC. Reports pain to olegario arms, reports back pain, and pain to right lateral aspect of abdomen. Vital Signs: 17:41 BP 142 / 77; Pulse 58; Resp 16 S; Temp 98.3(O); Pulse Ox 99% on R/A; Weight 63.5 kg aa5 (R); Height 5 ft. 1 in. (R); 20:01 BP 134 / 87; Pulse 62; Resp 15; Temp 98.1; Pulse Ox 100% ; me1 17:41 Body Mass Index 26.45 (63.50 kg, 154.94 cm) aa5 ED Course: 17:37 Patient arrived in ED. mr 17:41 Arm band placed on. aa5 17:43 Triage completed. aa5 17:56 Nilesh Salomon MD is Attending Physician. rn 19:00 Chest Abd Pelvis Wo Con In Process Unspecified. EDMS 19:00 Head C Spine Mpr Wo Con In Process Unspecified. EDMS 19:10 XRAY Forearm RIGHT In Process Unspecified. EDMS 19:10 XRAY Elbow LEFT 3 view In Process Unspecified. EDMS 19:18 Asiya Romero, RN is Primary Nurse. me1 19:19 Patient has correct armband on for positive identification. Bed in low position. Call me1 light in reach. Side rails up X2. Provided Education on: POC. Verbalized understanding.. 19:19 No provider procedures requiring assistance completed. Patient did not have IV access me1 during this emergency room visit. 19:45 Attending Physician role handed off by Nilesh Salomon MD sp4 19:45 Shade Galloway MD is Attending Physician. sp4 Administered Medications: 20:01 Drug: HYDROcodone-acetaminophen PO 5 mg-325 mg 2 tabs PO once Route: PO; me1 20:04 Follow up: Response: No adverse reaction me1 20:01 Drug: Promethazine PO 25 mg PO once Route: PO; me1 20:04 Follow up: Response: No adverse reaction me1 20:01 Drug: Ibuprofen PO 600 mg PO once Route: PO; me1 20:04 Follow up: Response: No adverse reaction me1 Medication: 19:19 VIS not applicable for this client. me1 Outcome: 19:57 Discharge ordered by MD. sp4 20:08 Discharged to home ambulatory, with family, me1 20:08 Condition: stable 20:08 Discharge instructions given to patient, Instructed on discharge instructions, follow up and referral plans. medication usage, Demonstrated understanding of instructions, follow-up care, medications, Prescriptions given X 3, 20:08 Patient left the ED. me1 Signatures: Dispatcher [employer] EDND Mireya Roach, Reg Reg Nilesh Salomon MD MD rn Calderon, Audri, RN RN aa5 Shade Galloway MD MD sp4 Asiya Romero, IDA RN me1 Corrections: (The following items were deleted from the chart) 17:44 17:41 BP 142 / 77; Pulse 58bpm; Resp 16bpm; Spontaneous; Pulse Ox 99% RA; Temp 98.3F aa5 Oral; 63.5 kg Reported; aa5 19:19 17:41 Chief complaint: Patient states: slipped and fell backwards yesterday at work, pt me1 denies head injury, denies LOC. Reports pain to olegario arms, reports back pain, and pain to right lateral aspect of abdomen. aa5
[2025-04-11 20:13] VITALS: BP 134/87; TEMP 98.1; O2SAT 100
== END 2025-04-11 20:08 | disposition home or self-care (01) ==
LOC: ER 17:33
DX: S09.90XA Unspecified injury of head, initial encounter (principal); S19.9XXA Unspecified injury of neck, initial encounter; S30.0XXA Contusion of lower back and pelvis, initial encounter; M54.2 Cervicalgia; R51.9 Headache, unspecified; W18.30XA Fall on same level, unspecified, initial encounter
CPT/HCPCS: 70450; 71250; 72125; 74176; 73080; 73090; 99283; Q0169